=== PATIENT | male | born 1970 | race African-American/Black ===

== ENCOUNTER 2017-05-25 00:17 | Emergency (ER) | payer SELFPAY ==
[~2017-05-25] VITALS: Ht 182.9 cm; Wt 63.7 kg
[2017-05-25 05:50] VITALS: BP 126/80
== END 2017-05-25 07:30 | disposition home or self-care (01) ==
LOC: ER 07:30
DX: S16.1XXA Strain of muscle, fascia and tendon at neck level, initial encounter (principal); V49.49XA Driver injured in collision with other motor vehicles in traffic accident, initial encounter; Y93.89 Activity, other specified; Y92.414 Local residential or business street as the place of occurrence of the external cause
CPT/HCPCS: 99283